=== PATIENT | male | born 1945 | race Caucasian/White ===

== ENCOUNTER 2016-09-11 12:56 | Day surgery (SDC) | payer BC, MEDICARE ==
[~2016-09-11 12:56] MED LIST: Buffered Lidocaine 0.9% SYRIN* 5 ML/SYR SYRINGE INTRADERM ONE; Lidocaine 2% PF* 10 ML AMP ONE
[2016-09-11] MEDS ORDERED: ceFAZolin 2 GM PREMIX(*) 2 GM/50 ML BAG IVPB ONE (13:26)
[2016-09-11] MEDS ORDERED: Buffered Lidocaine 0.9% SYRIN* 5 ML/SYR SYRINGE ONE (13:26)
[2016-09-11] MEDS ORDERED: Bupivacaine 0.5% SDV PF* 30 ML VIAL ONE (14:56)
[2016-09-11] MEDS ORDERED: Midazolam* 1 MG/ML 5 ML VIAL (5 MG) ONE (15:07)
[2016-09-11] MEDS ORDERED: fentaNYL* 50 MCG/ML 2 ML VIAL (100 MCG VIAL) ONE ×2 (15:21→15:31)
[2016-09-11] MEDS ORDERED: Ondansetron INJ* 2 MG/ML VIAL IV PRN (15:36)
[2016-09-11] MEDS ORDERED: oxyCODONE TAB* 5 MG TAB PO PRN (15:36)
[2016-09-11] MEDS ORDERED: HYDROcodone/ACETAMIN 5-325 MG* 1 TAB PO PRN (15:36)
[2016-09-11] MEDS ORDERED: DiMENhydriNATE IV* 50 MG/ML VIAL IV PUSH PRN (15:36)
[2016-09-11] MEDS ORDERED: fentaNYL* 50 MCG/ML 2 ML VIAL (100 MCG VIAL) IV PRN (15:36)
[2016-09-11 16:52] VITALS: BP 117/79
--- NOTE | 2016-09-12 10:38 | OP ---
DATE OF OPERATION: 09/11/16 - [facility] DATE OF : 49 SURGEON: Pedro Cruz MD SENIOR COMMUNICATIONS ENGINEER: Indigo Betts PA-C ANESTHESIOLOGIST: Vamshi Leal MD ANESTHESIA: MAC PRE-OP DIAGNOSIS: Chronic ulcer, left great toe, plantar aspect. POST-OP DIAGNOSIS: Chronic ulcer, left great toe, plantar aspect. OPERATIVE PROCEDURE: Partial amputation of left great toe. DESCRIPTION OF PROCEDURE: The patient was taken to the operating room where ankle Esmarch was used for hemostasis. We created a long dorsal flap and short plantar flap, excising the ulcer as well as the distal phalanx of the toe. The proximal phalanx was shortened with a microsagittal saw and then thorough dorsal plantar irrigation was performed with local culture sent. We closed the dorsal to the plantar flap with 2-0 Vicryl sutures, interrupted nylon for the skin, and a compression dressing applied. [id number] #: [id number] MTDD
== END 2016-09-11 16:55 | disposition home or self-care (01) ==
LOC: OR 12:56
PROVIDERS: ATTEND Orthopaedic Surgery
DX: M86.672 Other chronic osteomyelitis, left ankle and foot (principal); E11.9 Type 2 diabetes mellitus without complications; I10 Essential (primary) hypertension; E78.5 Hyperlipidemia, unspecified
CPT/HCPCS: 87070; 87073; 87205; 88305; 88311; J0690; J2001; J2250; J3010

== ENCOUNTER 2016-12-11 06:09 | Day surgery (SDC) | payer MEDICARE, BC ==
[~2016-12-11 06:09] MED LIST changes: +Buffered Lidocaine 0.9% SYRIN* 5 ML/SYR SYRINGE ONE; +Famotidine IV* 10 MG/ML 2 ML (20 mg) IV ONE; +Famotidine IV* 10 MG/ML 2 ML (20 mg) ONE; -Lidocaine 2% PF* 10 ML AMP ONE; +Metoclopramide TAB* 10 MG ONE; +Metoclopramide TAB* 10 MG PO ONE; +ceFAZolin 2 GM PREMIX (*) 50 ML IVPB ONE
[2016-12-11] MEDS ORDERED: fentaNYL* 50 MCG/ML 2 ML VIAL (100 MCG VIAL) ONE (07:05)
[2016-12-11] MEDS ORDERED: Ketorolac INJ* 30 MG/ML 1 ML VIAL ONE (07:05)
[2016-12-11] MEDS ORDERED: Propofol* 10 MG/ML 20 ML BTL IV PUSH ONE (07:05)
[2016-12-11] MEDS ORDERED: Dexamethasone IV* 4 MG/ML 1 ML (4 MG) ONE (07:05)
[2016-12-11] MEDS ORDERED: Lidocaine 2% PF * 5 ML VIAL ONE (07:05)
[2016-12-11] MEDS ORDERED: Ondansetron INJ* 2 MG/ML VIAL ONE (07:05)
[2016-12-11] MEDS ORDERED: Midazolam* 1 MG/ML 5 ML VIAL (5 MG) ONE (07:06)
[2016-12-11] MEDS ORDERED: KETAMINE HCL* 50 MG/ML 10 ML VIAL ONE (07:06)
[2016-12-11] MEDS ORDERED: Bupivacaine 0.5% SDV PF* 30 ML VIAL ONE (07:25)
[2016-12-11] MEDS ORDERED: Lidocaine 2% PF* 10 ML AMP ONE (07:43)
[2016-12-11] MEDS ORDERED: fentaNYL* 50 MCG/ML 2 ML VIAL (100 MCG VIAL) IV PRN (07:52)
[2016-12-11] MEDS ORDERED: oxyCODONE/Acetamin 5/325 MG* TAB PO PRN (07:52)
[2016-12-11] MEDS ORDERED: Ondansetron INJ* 2 MG/ML VIAL IV PRN (07:52)
[2016-12-11 08:59] VITALS: BP 113/77
--- NOTE | 2016-12-12 03:06 | OP ---
DATE OF OPERATION: 12/11/16 - [facility] DATE OF : 49 SURGEON: Pedro Cruz MD CCO: Indigo Betts PA-C ANESTHESIOLOGIST: Escobar Tovar MD ANESTHESIA: Monitored anesthesia care. PRE-OP DIAGNOSIS: Ulceration of the second toe tip and claw toe. POST-OP DIAGNOSIS: Ulceration of the second toe tip and claw toe. OPERATIVE PROCEDURE: Disarticulation, left second toe at the PIP level. DESCRIPTION OF PROCEDURE: The patient was taken to the operating room where MAC anesthesia was administered. With the ankle Esmarch applied, I made a transverse fishmouth incision over the middle phalanx of the left second toe. This was dissected proximally to the PIP joint, which was then disarticulated. We closed the dorsal plantar flaps after irrigation with interrupted Vicryl sutures, nylon for the skin, and a compression dressing applied. [id number] #: [id number] MTDD
== END 2016-12-11 09:24 | disposition home or self-care (01) ==
LOC: OR 06:09
PROVIDERS: ATTEND Orthopaedic Surgery
DX: E11.621 Type 2 diabetes mellitus with foot ulcer (principal); L97.529 Non-pressure chronic ulcer of other part of left foot with unspecified severity; M20.5X2 Other deformities of toe(s) (acquired), left foot; Z79.4 Long term (current) use of insulin; I10 Essential (primary) hypertension; E11.40 Type 2 diabetes mellitus with diabetic neuropathy, unspecified; E78.5 Hyperlipidemia, unspecified
CPT/HCPCS: 88305; 88311; A9270-GY; J0690; J1100; J1885; J2001; J2250; J2405; J2704; J3010

== ENCOUNTER 2017-09-29 08:47 | Emergency (ER) | payer MEDICARE, BC ==
[2017-09-29 08:58] VITALS: BP 150/79
--- NOTE | 2017-09-29 09:32 | UC ---
Respiratory Complaint HPI - HPI Summary HPI Summary: The patient is a 72-year-old male who presents here with a 2 to three-day history of nasal congestion and postnasal drip. Over the past 12 hours has developed a productive cough and some chest tightness. He states he often gets bronchitis and this is his typical pattern. He takes a Z-Romain when he gets like this and his symptoms resolve. He was last treated for bronchitis in May. He denies any shortness of breath or chest pain. - History of Current Complaint Chief Complaint: UCRespiratory Stated Complaint: CHEST CONGESTION Time Seen by Provider: 09/29/17 09:19 Hx Obtained From: Patient Onset/Duration: Gradual Onset, Lasting Days Timing: Constant Severity Initially: Mild Severity Currently: Moderate Pain Intensity: 0 Pain Scale Used: 0-10 Numeric Character: Cough: Productive Aggravating Factors: Deep Breaths Alleviating Factors: Nothing Associated Signs And Symptoms: Positive: Nasal Congestion Related History: Similar Episode/Dx as: - bronchitis - Allergies/Home Medications Allergies/Adverse Reactions: Allergies Allergy/AdvReac Type Severity Reaction Status Date / Time No Known Allergies Allergy Verified 12/11/16 06:15 PMH/Surg Hx/FS Hx/Imm Hx Previously Healthy: Yes Endocrine History: Dyslipidemia Cardiovascular History: Hypertension Respiratory History: Bronchitis - Surgical History Surgical History: Yes Surgery Procedure, Year, and Place: umbilical hernia repair 2001. appendectomy at age 14 1969. rotator cuff repair/attempted [place] [facility] [place]. right total knee replacement 2009 DR. HOFFMAN. BILAT CATARACT REMOVAL 2013. LEFT GREAT TOE PARTIAL AMP DR. HOOKER [place] - Family History Known Family History: Positive: Hypertension - Social History Alcohol Use: Occasionally Alcohol Amount: 2 BEERS MONTHLY Substance Use Type: None Smoking Status (MU): Never Smoked Tobacco Review of Systems Constitutional: Negative Skin: Negative Eyes: Negative ENT: Nasal Discharge, Sinus Congestion Respiratory: Cough Cardiovascular: Negative Gastrointestinal: Negative Genitourinary: Negative Motor: Negative Neurovascular: Negative Musculoskeletal: Negative Neurological: Negative Psychological: Negative Is Patient Immunocompromised?: No All Other Systems Reviewed And Are Negative: Yes Physical Exam Triage Information Reviewed: Yes Appearance: Well-Appearing, No Pain Distress, Well-Nourished Vital Signs: Initial Vital Signs Temp 97.9 F 09/29/17 08:54 Pulse 78 09/29/17 08:54 Resp 18 09/29/17 08:54 BP 150/79 09/29/17 08:54 Pulse Ox 100 09/29/17 08:54 Vital Signs Reviewed: Yes Eyes: Positive: Conjunctiva Clear ENT: Positive: Hearing grossly normal. Negative: Nasal congestion, Nasal drainage, Muffled voice, Hoarse voice Neck: Positive: Supple, Nontender, No Lymphadenopathy Respiratory: Positive: Normal breath sounds, No respiratory distress, No accessory muscle use, Rhonchi - with forced expiration Cardiovascular: Positive: RRR, No Murmur, Pulses Normal Musculoskeletal: Positive: ROM Intact, No Edema Neurological: Positive: Alert Psychological Exam: Normal Skin Exam: Other - multiple biopsy sites covered with bandaids from recent derm visit UC Diagnostic Evaluation - Laboratory O2 Sat by Pulse Oximetry: 100 - normal/not hypoxic Respiratory Course/Dx - Differential Dx/Diagnosis Provider Diagnoses: acute bronchitis Discharge - Sign-Out/Discharge Documenting (check all that apply): Discharge/Admit/Transfer - Discharge Plan Condition: Stable Disposition: HOME Prescriptions: Azithromycin TAB* [Zithromax TAB*] 250 mg PO DAILY #6 tab Patient Education Materials: Acute Bronchitis (ED) Referrals: James Dinh MD [Primary Care Provider] - 3 Days (if not better) Additional Instructions: plain robitussin or mucinex recheck for new or worsening symptoms - Billing Disposition and Condition Condition: STABLE Disposition: Home
== END 2017-09-29 09:34 | disposition home or self-care (01) ==
LOC: UCCORT 08:47
DX: J20.9 Acute bronchitis, unspecified (principal); I10 Essential (primary) hypertension
CPT/HCPCS: 99212; G0463